=== PATIENT | male | born 1970 | race Caucasian/White ===

== ENCOUNTER 2021-09-12 13:51 | Emergency (ER) | payer BC, SELFPAY ==
--- NOTE | 2021-09-12 13:57 | ED.NAVMDI ---
HPI - Nausea/Vomiting/Diarrhea General Chief complaint: Upper Respiratory Infection Stated complaint: vomiting Time Seen by Provider: 09/12/21 13:55 Source: patient Mode of arrival: ambulatory Limitations: no limitations History of Present Illness HPI Narrative: Mr. Atwood is a 51-year-old male patient presenting to the clinic today with complaints of vomiting, sore throat, congestion, body aches, and general abdominal discomfort x3 days. He reports it started out with vomiting for about 12 hours straight. He denies any known fever but has had some chills and body aches. Its most of his abdominal discomfort was due to the vomiting. Reports he feels that his throat is swollen and also states that this is likely due to his vomiting. He has been trying to gradually hydrate and eat. He has had some crackers last night and some soup this morning that did stay down. He is a type I diabetic. Reports that he is feeling weak. Patient has a insulin pump and a Dexcom reader that is able to read his blood sugar and give results on his phone. His blood sugar is currently 240 in the clinic today. elicited complaint: nausea and vomiting Related Data Home Medications Medication Instructions Recorded Confirmed atorvastatin [Lipitor] 40 mg PO DAILY 09/12/21 09/12/21 blood-glucose meter,continuous 09/12/21 09/12/21 [Dexcom G6 Penal Officer] glucagon [Glucagon Emergency Kit 1 mg DIRECTED 09/12/21 09/12/21 (human)] insulin lispro [Humalog U-100 75 unit DIRECTED 09/12/21 09/12/21 Insulin] insulin pump cart,cont inf,BT 09/12/21 09/12/21 [Omnipod Dash Insulin Pod] lamotrigine [Lamictal] 300 mg PO HS 09/12/21 09/12/21 levothyroxine 112 mcg PO DAILY 09/12/21 09/12/21 losartan 50 mg PO DAILY 09/12/21 09/12/21 paroxetine HCl [Paxil] 30 mg PO DAILY 09/12/21 09/12/21 Allergies Allergy/AdvReac Type Severity Reaction Status Date / Time No Known Allergies Allergy Verified 09/12/21 14:15 Review of Systems Review of Systems: Pertinent positives per HPI. Patient denies any fever, rash, headache, visual changes, dizziness, cough, runny nose, shortness of breath, chest pain, palpitations, diarrhea, constipation, or any urinary issues. PMFSH Family History Family History Other Depression Family history of cardiovascular disease Family history of coronary artery disease Family history of malignant neoplasm of esophagus Family history of thyroid disease Hypertension Social History Social History Smoking status: Never smoker Alcohol intake: current Comments At the time of my signature, I reviewed and agree with the nursing past medical, surgical, social, and family history. There is no relevant family history pertinent to the patient complaint. Exam Narrative: General: Well-developed, well nourished, moderately ill-appearing Head: Normocephalic, atraumatic Eyes: Pupils equally round and reactive to light bilaterally, EOM intact, sclera and conjunctive clear, no discharge, lids normal Ears: TMs intact and clear, ear canals clear, no drainage, grossly hearing normal. Nose: Nares patent, clear discharge, no inflammation, no sinus tenderness. Mouth: Oropharynx without lesions or masses, good dentition, MM dry. Oropharynx red without tonsillar enlargement. Neck: Supple, trachea midline, no enlargement of anterior or posterior cervical nodes, no thyroid masses or goiter palpable. Cardio: Regular rate and rhythm, s1 and s2 normal, no murmur appreciated. Resp: Clear to auscultation bilaterally anteriorly and posteriorly, no rhonchi, rales, wheezing or rubs Abdomen: Soft, pliable, bowel sounds present in all quadrants, generalized tenderness to palpation, no organomegly, no CVAT tenderness. Course Course Emergency Course: Portions of this record may have been created with voice recognition sof
[2021-09-12 14:05] VITALS: BP 153/86; PULSE 90; RESP 18; TEMP 36.4; O2SAT 98
--- NOTE | 2021-09-12 14:32 | PC.NURSE ---
1428- Pt has a dexcom- verified blood glucose was 240. Canceled bedside blood glucose order per Luisa Tsang NP.
== END 2021-09-12 14:44 | disposition home or self-care (01) ==
PROVIDERS: Emergency Provider Nurse Practitioner Family; PCP Family Medicine
DX: B34.9 Viral infection, unspecified (principal); E10.9 Type 1 diabetes mellitus without complications; Z20.822 Contact with and (suspected) exposure to COVID-19
CPT/HCPCS: 81003; 87081; 87426; 87804; 87880; 99213; C9803; G0463

== ENCOUNTER 2023-06-01 00:55 | Day surgery (SDC) | payer OTHER, SELFPAY ==
[2023-05-18 10:20] VITALS: BMI 29.6
--- NOTE | 2023-05-28 10:33 | SUR.PREOP ---
Patient called regarding upcoming procedure. Message left on pt's voicemail regarding appointment times.
[2023-06-01 08:15] VITALS: BP 148/74; PULSE 73; RESP 20; TEMP 36.6; O2SAT 99; BMI 29.3
--- NOTE | 2023-06-01 08:16 | SUR.PREOP ---
pt BS 214 per Dexcom at 0815.
[2023-06-01] MEDS: LACTATED RINGERS 1,000 ML 150 ML IV CONT (08:21)
--- NOTE | 2023-06-01 09:01 | WPDANESEPPF ---
Anes - Initial Pre Proc Eval Procedure: Operation Date: 06/01/23 09:30 Proposed Procedures p Screening Colonoscopy - Freddie Moise MD Date/Time: 06/01/23 09:01 Surgeon: Freddie Moise MD Pre Op Diagnosis: neoplasm screening Patient Data Age: 52 Gender: M Height: 1.75 m Weight: 90.2 kg Last Vital Signs Temp 36.6 C 06/01/23 08:15 Pulse 73 06/01/23 08:15 Resp 20 06/01/23 08:15 BP 148/74 H 06/01/23 08:15 Pulse Ox 99 06/01/23 08:15 O2 Del Method Room Air 06/01/23 08:15 Allergies Allergy/AdvReac Type Severity Reaction Status Date / Time No Known Allergies Allergy Verified 06/01/23 08:14 Home Medications Medication Instructions Recorded Confirmed Type blood-glucose meter,continuous 09/12/21 04/05/23 History (Dexcom G6 Supervisor Pumping) glucagon 1 mg solution for 1 mg DIRECTED 09/12/21 05/18/23 History injection (Glucagon Emergency Kit) insulin lispro 100 unit/mL 75 unit DIRECTED 09/12/21 05/18/23 History subcutaneous solution (Humalog U-100 Insulin) insulin pump cart,cont inf,BT 09/12/21 04/05/23 History (Omnipod Dash Pods (Gen 4) subcutaneous cartridge) lamotrigine 150 mg tablet 300 mg PO HS 09/12/21 05/18/23 History (Lamictal) levothyroxine 112 mcg tablet 112 mcg PO DAILY 09/12/21 05/18/23 History losartan 50 mg tablet 50 mg PO DAILY 09/12/21 05/18/23 History paroxetine HCl 30 mg tablet (Paxil) 30 mg PO DAILY 09/12/21 05/18/23 History aspirin 81 mg tablet,delayed 81 mg PO DAILY 04/05/23 05/18/23 History release (Adult Aspirin Regimen) insulin glargine 100 unit/mL 25 unit subcut QAM 04/05/23 05/18/23 History subcutaneous solution (Lantus U-100 Insulin) naproxen sodium 220 mg tablet 220 mg PO BID PRN Pain 04/05/23 05/18/23 History (Aleve) Patient hx anesthesia problems: none Family hx anesthesia problems: none Results Review: All pre-operative results and documents have been reviewed as part of the pre-operative evaluation. PMFSH Past Medical History Medical History Hypercholesterolemia Obstructive sleep apnea Family History Family History Other Depression Family history of cardiovascular disease Family history of coronary artery disease Family history of malignant neoplasm of esophagus Family history of thyroid disease Hypertension Social History Social History Smoking status: Former smoker Tobacco type: cigarettes Alcohol intake: current Drinks per week: 20 Alcohol use details: 5 days a week, beer Substance use: former Substance use type: marijuana Education: High School Diploma/GED Living arrangements: with family Occupation/Education: occupation 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 Informed Consent: The patient's anesthetic plan and its attendant risks and benefits were discussed with the patient/family/POA. Questions were solicited and answers provided to the satisfaction of the patient/family/POA.
--- NOTE | 2023-06-01 09:17 | PM.HPGS ---
History of Present Illness History of Present Illness Consent: Risks, benefits, and alternatives have been discussed and questions answered. Patient agrees to proceed with procedure. Chief complaint: neoplasm screening Narrative: Iftikhar Atwood is a 52 year old male here for first screening colonoscopy Review of Systems Constitutional: Constitutional: Denies headache(s) and Denies weakness Eyes: Eyes: Denies blurry vision ENT: Reports Normal hearing present, Denies headache(s) and Denies neck pain Cardiovascular: Cardiovascular: Denies chest pain and Denies dyspnea Respiratory: Respiratory: Denies dyspnea Gastrointestinal: Gastrointestinal: Reports no additional gastrointestinal complaints Genitourinary: Genitourinary: Denies dysuria Musculoskeletal: Musculoskeletal: Denies neck pain Integumentary/Breasts: Skin/Breast: Denies dry skin Neurologic: Reports Normal hearing present, Denies headache(s) and Denies weakness Psychiatric: Psychiatric: Denies anxiety Endocrine: Endocrine: Denies change in body appearance Hematologic/Lymphatic: Hematologic/Lymphatic: Denies easy bleeding Allergic/Immunologic: Allergic/Immunologic: Denies urticaria [facility] Past Medical History Medical History (Updated 06/01/23 @ 09:17 by Freddie Moise MD) Colon cancer screening Hypercholesterolemia Obstructive sleep apnea Family History Family History Other Depression Family history of cardiovascular disease Family history of coronary artery disease Family history of malignant neoplasm of esophagus Family history of thyroid disease Hypertension Social History Social History Smoking status: Former smoker Tobacco type: cigarettes Alcohol intake: current Drinks per week: 20 Alcohol use details: 5 days a week, beer Substance use: former Substance use type: marijuana Education: High School Diploma/GED Living arrangements: with family Occupation/Education: occupation 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 Spiritual care concerns: No Meds Home Medications and Allergies Home Medications Medication Instructions Recorded Confirmed Type blood-glucose meter,continuous 09/12/21 04/05/23 History (Dexcom G6 City Manager) glucagon 1 mg solution for 1 mg DIRECTED 09/12/21 05/18/23 History injection (Glucagon Emergency Kit) insulin lispro 100 unit/mL 75 unit DIRECTED 09/12/21 05/18/23 History subcutaneous solution (Humalog U-100 Insulin) insulin pump cart,cont inf,BT 09/12/21 04/05/23 History (Omnipod Dash Pods (Gen 4) subcutaneous cartridge) lamotrigine 150 mg tablet 300 mg PO HS 09/12/21 05/18/23 History (Lamictal) levothyroxine 112 mcg tablet 112 mcg PO DAILY 09/12/21 05/18/23 History losartan 50 mg tablet 50 mg PO DAILY 09/12/21 05/18/23 History paroxetine HCl 30 mg tablet (Paxil) 30 mg PO DAILY 09/12/21 05/18/23 History aspirin 81 mg tablet,delayed 81 mg PO DAILY 04/05/23 05/18/23 History release (Adult Aspirin Regimen) insulin glargine 100 unit/mL 25 unit subcut QAM 04/05/23 05/18/23 History subcutaneous solution (Lantus U-100 Insulin) naproxen sodium 220 mg tablet 220 mg PO BID PRN Pain 04/05/23 05/18/23 History (Aleve) Allergies Allergy/AdvReac Type Severity Reaction Status Date / Time No Known Allergies Allergy Verified 06/01/23 08:14 Vital Signs Vital Signs - 24 hr 06/01/23 08:15 Temperature 97.8 F Pulse Rate 73 Respiratory Rate 20 Blood Pressure 148/74 H Pulse Oximetry 99 Oxygen Delivery Room Air Exam Const: General: comfortable and no acute distress HENMT: Face/Nose/Sinus: Normal nares present Eyes: General: appearance normal, both eyes and all related structures Neck: Neck: no JVD Resp: Auscultation: clear to auscultation bilaterally Car
[2023-06-01 09:38] VITALS: BP 109/66; PULSE 76; RESP 24; O2SAT 96
[2023-06-01 09:48] VITALS: BP 108/66; PULSE 77; RESP 22; O2SAT 97
[2023-06-01 09:58] VITALS: BP 132/78; PULSE 71; RESP 25; O2SAT 99
== END 2023-06-01 10:02 | disposition home or self-care (01) ==
PROVIDERS: PCP Family Medicine; Visit Provider Internal Medicine Gastroenterology
PROC: 0DJD8ZZ Inspection of Lower Intestinal Tract, Via Natural or Artificial Opening Endoscopic (ICD-10-PCS; CPT 45378; principal; 2023-06-01 09:30)
DX: Z12.11 Encounter for screening for malignant neoplasm of colon (principal); D12.2 Benign neoplasm of ascending colon; E78.00 Pure hypercholesterolemia, unspecified; G47.33 Obstructive sleep apnea (adult) (pediatric); Z87.891 Personal history of nicotine dependence; Z79.4 Long term (current) use of insulin; Z79.82 Long term (current) use of aspirin; Z96.41 Presence of insulin pump (external) (internal)
CPT/HCPCS: 45385; 88305; J2704; J7120